=== PATIENT | female | born 1955 | race Two or more races ===

== ENCOUNTER 2019-05-28 13:18 | Inpatient (IN) | payer MEDICARE, OTHER ==
[~2019-05-28] VITALS: Ht 167.6 cm; Wt 90.7 kg
--- NOTE | 2019-05-28 13:20 | NUR ---
PT [id number], FOUND BY PD INSIDE [place] STATION W/ NO PANTS AND ACTING BIZZARE, PT IS AAOX2, NOT IN RESPIRATORY DISTRESS, HOOKED TO MONITOR, KEPT RESTED AND COMFORTABLE, WILL CONTINUE TO MONITOR.
[2019-05-28] MEDS ORDERED: MELA3TAB63 PO (13:54)
[2019-05-28] MEDS ORDERED: FAMO20TA8 PO (13:54)
[2019-05-28] MEDS ORDERED: PRAV40TA3 PO (13:54)
[2019-05-28] MEDS ORDERED: GABA600T12 PO (13:54)
[2019-05-28] MEDS ORDERED: TRAM50TA2 PO (13:54)
[2019-05-28] MEDS ORDERED: OLAN15TA3 PO (13:54)
[2019-05-28] MEDS ORDERED: IBUP-1953 PO (13:54)
[2019-05-28] MEDS ORDERED: ESTR0.5T PO (13:54)
[2019-05-28] MEDS ORDERED: POTA10CA43 PO (13:54)
[2019-05-28] MEDS ORDERED: ALLO300T2 PO (13:54)
[2019-05-28] MEDS ORDERED: LEVO88TA5 PO (13:54)
[2019-05-28] MEDS ORDERED: CLON0.5T4 PO (13:54)
--- NOTE | 2019-05-28 14:00 | NUR ---
URINE SPECIMEN COLLECTED AND SENT TO LAB.
--- NOTE | 2019-05-28 14:05 | NUR ---
AT BEDSIDE FOR EVAL.
--- NOTE | 2019-05-28 14:23 | NUR ---
PT IS WHEELED TO CT SCAN VIA [facility].
[2019-05-28 14:28] LABS: APPEARANCE,URINE Clear (CLEAR); BILIRUBIN,URINE Negative (NEGATIVE); BLOOD, URINE Negative Ery/uL (NEGATIVE); COLOR,URINE Yellow (YELLOW); KETONES,URINE Negative (NEGATIVE); LEUKOCYTE ESTERASE ,URINE Negative (NEGATIVE); NITRITE, URINE Negative (NEGATIVE); PROTEIN,URINE Negative (NEGATIVE); UGLUCOSE Negative (NEGATIVE); UROBILINOGEN,URINE 0.2 EU/dL (0.2)
--- NOTE | 2019-05-28 14:50 | NUR ---
BLOOD DRAWN AND SENT TO LAB.
[2019-05-28 14:58] LABS: BASOPHILS # (AUTO) 0.1 /CMM (0.0-0.2); EOSINOPHILS % (AUTO) 0.4 % (0.0-6.0); HEMATOCRIT 44 % (33-45); HEMOGLOBIN 14.3 g/dL (11.5-14.8); LYMPHOCYTES # (AUTO) 1.8 /CMM (0.8-4.8); LYMPHOCYTES % (AUTO) 13.4 % (20.0-44.0); MEAN CORPUSCULAR HGB CONC 32 g/dl (31.0-36.0); MEAN CORPUSCULAR VOLUME 98 fL (82-100); MONOCYTES # (AUTO) 0.6 /CMM (0.1-1.30); MONOCYTES % (AUTO) 4.3 % (2.0-12.0); NEUTROPHILS # (AUTO) 10.7 /CMM (1.8-8.9); NEUTROPHILS % (AUTO) 80.9 % (43.0-81.0); PLATELET COUNT (AUTO) 234 /CMM (150-450); RED BLOOD CELL COUNT(AUTO) 4.47 MIL/uL (4.0-5.2); WHITE BLOOD COUNT (AUTO) 13.2 K/uL (4.3-11.0)
[2019-05-28 15:06] LABS: CALCIUM, SERUM 9.7 mg/dL (8.5-10.1); CREATININE 1.1 mg/dL (0.6-1.3); POTASSIUM 3.9 mmol/L (3.5-5.1)
[2019-05-28 15:21] LABS: BILIRUBIN,DIRECT 0.1 mg/dL (0.0-0.2); BILIRUBIN,TOTAL 0.4 mg/dL (0.2-1.0)
[2019-05-28 15:22] LABS: ALBUMIN 4.4 g/dL (3.4-5.0); SALICYLATE 1.3 mg/dL (2.8-20.0); TOTAL PROTEIN, SERUM 8.2 g/dL (6.4-8.2)
[2019-05-28] MEDS ORDERED: ASPIRIN 325 MG TABLET ONE (15:27)
[2019-05-28] MEDS ORDERED: ASPIRIN 325 MG TABLET PO ONE (15:30)
[2019-05-28] MEDS ORDERED: IOHEXOL-350 100 ML VIAL IV ONE (15:31)
[2019-05-28] MEDS ORDERED: CT SWABBABLE VALVE TRANS SET 1 EA INFUS.SET MC ONE (15:31)
[2019-05-28] MEDS ORDERED: IV NS 0.9% 250 ML IV ONE (15:31)
--- NOTE | 2019-05-28 15:47 | NUR ---
PT IS BACK FROM THE CT SCAN.
[2019-05-28 15:48] LABS: THYROID STIMULATING HORMONE 1.618 uIU/mL (0.358-3.74)
--- NOTE | 2019-05-28 15:52 | NUR ---
SPOKED TO PT'S DAUGHTER PEREZ PHONE # [phone]
[2019-05-28 16:00] LABS: MAGNESIUM 2.4 mg/dL (1.8-2.4); PHOSPHORUS 3.4 mg/dL (2.5-4.9)
--- NOTE | 2019-05-28 16:27 | NUR ---
AT BEDSIDE FOR EVAL.
--- NOTE | 2019-05-28 16:43 | NUR ---
[facility] in [facility] - 05/28/19 at 1644 by JOSE [id number]
--- NOTE | 2019-05-28 16:44 | NUR ---
ROOM GIVEN [id number]
--- NOTE | 2019-05-28 16:50 | NUR ---
REPORT GIVEN TO ELIZABETH LEARY FOR RACHAEL.
[2019-05-28 17:00] VITALS: BP 145/80
--- NOTE | 2019-05-28 18:14 | NUR ---
RN NOTE ADMISSION PATIENT ARRIVED ON THE UNIT VIA GURNEY FROM ER. IN [employer] ALERT ORIENTED X2-3. COOPERATIVE. IV PATENT AND INTACT. NO WOUNDS NOTED. ABLE TO AMBULATE BRP NOT DIZZY NO COMPLAINTS OF PAIN. VITALS WNL BLOOD PRESSURE SLIGHTLY ELEVATED 148 / 80 ALL VITALS WNL. NO NAUSEA. NEURO ASSESSMENT DONE. ALL LIMBS WNL SPEACH NORMAL, PUPILS NORMAL. FACIAL SYMETRY NORMAL.
--- NOTE | 2019-05-28 19:10 | NUR ---
RN BP/ NOTE RN CONTACTED PRIMARY FOR PRN BP MEDICATION DUE TO BP 158/80
--- NOTE | 2019-05-28 19:20 | NUR ---
CHIEF OF PEDIATRIC UROLOGY OPENING NOTES RECEIVED PATIENT SLEEPING IN BED, AROUSABLE BY NAME AND TOUCH. BREATHING EVEN AND UNLABORED. NOT IN ANY DISTRESS. TELE MONITOR IN PLACE- SINUS TACH 101. SAFETY MEASURES IN PLACE; CALL LIGHT WITHIN REACH, BED IN LOW, LOCKED POSITION. WILL CONTINUE TO MONITOR ACCORDINGLY
[2019-05-28] MEDS ORDERED: hydrALAZINE HCL 25 MG TABLET PO PRN (19:30)
--- NOTE | 2019-05-28 19:35 | NUR ---
TEXTED DR. MOCK FOR MRI APPROVAL.
[2019-05-28 20:00] VITALS: BP 138/83
[2019-05-28] MEDS ORDERED: clonazePAM 0.5 MG TABLET PO PRN (21:00)
[2019-05-28] MEDS ORDERED: TRAMADOL HCL 50 MG TABLET PO PRN (21:00)
[2019-05-28] MEDS ORDERED: IBUPROFEN 400 MG TABLET PO PRN (21:00)
--- NOTE | 2019-05-28 21:25 | NUR ---
RN NOTES ANDREW CLEMENTE MILLWRIGHT INSTRUCTOR OF NEURO CAME TO SEE THE PATENT. ORDER FOR PSYCH CONSULT RECEIVED. NOTED AND CARRIED OUT. FACE SHEET FAXED TO [employer]
[2019-05-28] MEDS: ATORVASTATIN 10 MG TABLET PO SCH (21:54)
[2019-05-28] MEDS: OLANZAPINE 5 MG/TAB.RAPDIS PO SCH (21:54)
[2019-05-28] MEDS ORDERED: OLANZAPINE 10 MG TABLET PO SCH (22:00)
[2019-05-29] VITALS: BP 132/86
[2019-05-29 04:00] VITALS: BP 130/85
[2019-05-29 06:32] LABS: BASOPHILS % (AUTO) 0.3 % (0.0-2.0); EOSINOPHILS % (AUTO) 3.1 % (0.0-6.0); HEMATOCRIT 43 % (33-45); HEMOGLOBIN 14.4 g/dL (11.5-14.8); LYMPHOCYTES # (AUTO) 2.5 /CMM (0.8-4.8); MEAN CORPUSCULAR HGB CONC 34 g/dl (31.0-36.0); MEAN CORPUSCULAR VOLUME 98 fL (82-100); MONOCYTES # (AUTO) 0.7 /CMM (0.1-1.30); MONOCYTES % (AUTO) 7.4 % (2.0-12.0); NEUTROPHILS # (AUTO) 5.7 /CMM (1.8-8.9); NEUTROPHILS % (AUTO) 62.2 % (43.0-81.0); PLATELET COUNT (AUTO) 216 /CMM (150-450); RED BLOOD CELL COUNT(AUTO) 4.37 MIL/uL (4.0-5.2); WHITE BLOOD COUNT (AUTO) 9.2 K/uL (4.3-11.0)
[2019-05-29 06:34] LABS: CALCIUM, SERUM 9.5 mg/dL (8.5-10.1); CREATININE 0.8 mg/dL (0.6-1.3); POTASSIUM 3.6 mmol/L (3.5-5.1)
--- NOTE | 2019-05-29 06:43 | NUR ---
DANCE THERAPIST CLOSING NOTES PATIENT IN BED, ALERT, ORIENTED X 4. BREATHING EVEN AND UNLABORED. NOT IN ANY DISTRESS. TELE MONITOR IN PLACE- SINUS RHYTHM 98. IV ACCESS IN RAC G#18, INTACT AND PATENT. ALL NEEDS ATTENDED. NO ACUTE CHANGES OVERNIGHT. SAFETY MEASURES IN PLACE; CALL LIGHT WITHIN REACH, BED IN LOW, LOCKED POSITION. WILL ENDORSE RACHAEL TO ONCOMING RN
[2019-05-29 06:46] LABS: THYROID STIMULATING HORMONE 1.638 uIU/mL (0.358-3.74)
[2019-05-29] MEDS: ASPIRIN EC 81 MG TABLET.DR PO SCH (08:31)
[2019-05-29] MEDS: ESTRADIOL 1 MG TABLET PO SCH (08:31)
[2019-05-29] MEDS: LEVOTHYROXINE SODIUM 88 MCG TABLET PO SCH (08:32)
[2019-05-29] MEDS: POTASSIUM CHLORIDE 10 MEQ TABLET.SA PO SCH (08:33)
[2019-05-29] MEDS: ALLOPURINOL 100 MG TABLET PO SCH (08:33)
[2019-05-29] MEDS: GABAPENTIN 300 MG CAPSULE PO SCH ×2 (08:34→17:12)
[2019-05-29] MEDS: FAMOTIDINE (20 MG) 20 MG TABLET PO SCH ×2 (08:34→17:12)
--- NOTE | 2019-05-29 10:56 | NUR ---
Social work consult requested for stroke. Pt is a 63year old female admitted to [facility] to rule out stroke. Pt currently lives at home [[address] [facility] [address]; [phone]]. Pts emergency contact and next of kin is her son Ankur Jimenez [[phone]]. Pt presents as alert and is oriented x 4 (person, time, place, situation). Pt is calm and cooperative during assessment. Per pt, she did not have a stroke, but feels she passed out due to Soma medication side effects. Pt states she has a diagnosis of schizophrenia and has been under the care of her psychiatrist, Dr. Tevin Alvarez [[phone]], for many years in [place], [place]. Pt states she will be speaking with him once she is discharged regarding medication management. Pt states she is anxious to be discharged soon because she has a family vacation cruise scheduled to depart this 06/01/19, and is worried she may miss it if she is not discharged on time. Pt declined any referrals for home health or other supportive services for once she is discharged. No mental health concerns, including suicidal and homicidal ideation, or any concerns with alcohol/substance abuse, are present at this time. PHQ-9 assessment completed. No further social services specialist needs identified at this time as pt states she does not feel the need for home supportive resources at this time. SW will remain available should any needs arise.
--- NOTE | 2019-05-29 12:30 | NUR ---
M/S RN NOTES PATIENT RECEIVED IN NO RESPIRATORY DISTRESS, NO C/O PAIN AT THIS TIME. PATIENT REQUESTING TO TAKE A SHOWER. PATIENT ESCORTED TO BATHROOM.
--- NOTE | 2019-05-29 18:50 | NUR ---
M/S RN NOTES PATIENT IN NO RESPIRATORY DISTRESS, NO C/O PAIN AT THIS TIME. PATIENT'S IV ACCESS SITE INTACT AND PATENT. PATIENT'S BED ON LOWEST LOCKED POSITION, CALL LIGHT WITHIN REACH. WILL ENDORSE TO ONCOMING NURSE.
--- NOTE | 2019-05-29 19:10 | NUR ---
MS RN OPENING NOTES RECEIVED PATIENT IN BED, AWAKE, ALERT, VERBALLY RESPONSIVE. BREATHING EVEN AND UNLABORED. NOT IN ANY DISTRESS. ON ROOM AIR. NO COMPLAINTS AT THIS TIME. SAFETY MEASURES IN PLACE, CALL LIGHT WITHIN REACH, BED IN LOW, LOCKED POSITION. WILL CONTINUE TO MONITOR ACCORDINGLY
[2019-05-29 20:00] VITALS: BP 142/74
[2019-05-29] MEDS: OLANZAPINE 5 MG/TAB.RAPDIS PO SCH (21:09)
[2019-05-29] MEDS: ATORVASTATIN 10 MG TABLET PO SCH (21:09)
[2019-05-30 06:25] LABS: BASOPHILS % (AUTO) 0.3 % (0.0-2.0); EOSINOPHILS % (AUTO) 3.3 % (0.0-6.0); HEMATOCRIT 42 % (33-45); HEMOGLOBIN 13.6 g/dL (11.5-14.8); LYMPHOCYTES # (AUTO) 2.3 /CMM (0.8-4.8); MEAN CORPUSCULAR HGB CONC 33 g/dl (31.0-36.0); MEAN CORPUSCULAR VOLUME 98 fL (82-100); MONOCYTES # (AUTO) 0.7 /CMM (0.1-1.30); MONOCYTES % (AUTO) 7.1 % (2.0-12.0); NEUTROPHILS # (AUTO) 6.6 /CMM (1.8-8.9); NEUTROPHILS % (AUTO) 66.3 % (43.0-81.0); PLATELET COUNT (AUTO) 213 /CMM (150-450); RED BLOOD CELL COUNT(AUTO) 4.26 MIL/uL (4.0-5.2); WHITE BLOOD COUNT (AUTO) 9.9 K/uL (4.3-11.0)
--- NOTE | 2019-05-30 06:57 | NUR ---
MS RN CLOSING NOTES PATIENT IN BED, ALERT, ORIENTED X 4. BREATHING EVEN AND UNLABORED. NOT IN ANY DISTRESS. ALL NEEDS ATTENDED. NO ACUTE CHANGES OVERNIGHT. SAFETY MEASURES IN PLACE; CALL LIGHT WITHIN REACH, BED IN LOW, LOCKED POSITION. WILL ENDORSE RACHAEL TO ONCOMING RN
[2019-05-30 07:05] LABS: CALCIUM, SERUM 9.4 mg/dL (8.5-10.1); CREATININE 0.7 mg/dL (0.6-1.3); MAGNESIUM 2.4 mg/dL (1.8-2.4); PHOSPHORUS 3.6 mg/dL (2.5-4.9); POTASSIUM 4.1 mmol/L (3.5-5.1)
--- NOTE | 2019-05-30 07:30 | NUR ---
M/S RN NOTES PATIENT ALERT AND ORIENTED X4. PATIENT IN NO RESPIRATORY DISTRESS, NO C/O PAIN AT THIS TIME. PATIENT NOT SHOWING ANY CONFUSION OR BEHAVIORAL CHANGES. PATIENT'S IV ACCESS SITE INTACT AND PATENT. BED ON LOWEST LOCKED POSITION, CALL LIGHT WITHIN REACH. WILL CONTINUE TO MONITOR.
[2019-05-30 07:51] VITALS: BP 140/93
[2019-05-30] MEDS: LEVOTHYROXINE SODIUM 88 MCG TABLET PO SCH (08:16)
[2019-05-30] MEDS: POTASSIUM CHLORIDE 10 MEQ TABLET.SA PO SCH (09:43)
[2019-05-30] MEDS: GABAPENTIN 300 MG CAPSULE PO SCH (09:43)
[2019-05-30] MEDS: FAMOTIDINE (20 MG) 20 MG TABLET PO SCH (09:43)
[2019-05-30] MEDS: ASPIRIN EC 81 MG TABLET.DR PO SCH (09:44)
[2019-05-30] MEDS: ALLOPURINOL 100 MG TABLET PO SCH (09:44)
[2019-05-30] MEDS: ESTRADIOL 1 MG TABLET PO SCH (09:44)
--- NOTE | 2019-05-30 13:50 | NUR ---
M/S RN NOTES PATIENT WANTING TO LEAVE MD SHARIF NOTIFIED. PATIENT WANTS TO SEE HER DAUGHTER AND ALSO TO GET HER CAR BACK. TOLD PATIENT RISKS AND BENEFITS BUT STATED "I FEEL FINE, MY DAUGHTER IS GETTING AN UBER RIDE FOR ME SO I CAN GREEN CHAINER MY CAR."
--- NOTE | 2019-05-30 14:40 | NUR ---
M/S RN NOTES SPOKE TO DR. ORMERO AND PER MD SHE IS CLINICALLY CLEARED.
--- NOTE | 2019-05-30 14:55 | NUR ---
M/S RN NOTES PATIENT SIGNED AMA FORM. PATIENT'S IV REMOVED AND APPLIED PRESSURE DRESSING.
== END 2019-05-30 14:30 | disposition left against medical advice (07) | DRG 917 ==
LOC: ER 13:21 → TELE 17:10 → MED 05-29 08:34
PROVIDERS: ADMIT Student in an Organized Health Care Education/Training Program; ATTEND Student in an Organized Health Care Education/Training Program
DX: T42.8X1A Poisoning by antiparkinsonism drugs and other central muscle-tone depressants, accidental (unintentional), initial encounter (principal); G92 Toxic encephalopathy; E87.0 Hyperosmolality and hypernatremia; F20.0 Paranoid schizophrenia; E86.0 Dehydration; E11.9 Type 2 diabetes mellitus without complications; E03.9 Hypothyroidism, unspecified; M10.9 Gout, unspecified; E78.5 Hyperlipidemia, unspecified; D72.829 Elevated white blood cell count, unspecified; I10 Essential (primary) hypertension; Y92.9 Unspecified place or not applicable
CPT/HCPCS: 36415; 70450-TC; 70496-TC; 70498-TC; 70551-TC; 71045-TC; 80048-TC; 80061-TC; 80076-TC; 80305; 81000-TC; 82140-TC; 83735-TC; 84100-TC; 84439-TC; 84443-TC; 84484-TC; 85025-TC; 85730-TC; 87081-TC; 92611-TC; 93307-TC; 97116-TC; 97530-TC; G0378; G0480; J7050; Q9967